=== PATIENT | female | born 1960 | race Caucasian/White ===

== ENCOUNTER 2019-07-20 13:17 | Outpatient (CLI) | payer OTHER, SELFPAY ==
--- NOTE | 2019-07-20 | CT_ITS ---
WS: [id number] CT HEAD NONCONTRAST HISTORY: CONCUSSION W/ LOC TECHNIQUE: Contiguous axial imaging performed through the brain in 2.5 mm imaging. Bone and soft tiss ue windows. All CT scans at [facility] use at least one of these dose optimization techniq ues: automated exposure control; mA and/or kV adjustment per patient size (includes targeted exams wh ere dose is matched to clinical indication); or iterative reconstruction. DLP: 992.04 mGycm COMPARISON: 06/03/2007 No acute intracranial hemorrhage, midline shift or mass effect. No atrophy or prior infarcts or herniation. Ventricles: Normal size with no hydrocephalus. Paranasal sinuses: As visualized are clear. Mastoid air cells: Well pneumatized. Calvarium and scalp: Skull is intact with no soft tissue edema or swelling. CT/CT head wo con* [id number] IMPRESSION: Negative head CT.
== END 2019-07-20 13:18 | disposition home or self-care (01) ==
LOC: RADWPI 13:23
PROVIDERS: Family Provider Family Medicine; PCP Family Medicine; Visit Provider Family Medicine
DX: R51 Headache (principal); S06.0X9A Concussion with loss of consciousness of unspecified duration, initial encounter; X58.XXXA Exposure to other specified factors, initial encounter
CPT/HCPCS: 70450

== ENCOUNTER 2021-04-23 17:22 | Emergency (ER) | payer OTHER, SELFPAY ==
[2021-04-23 17:29] VITALS: BP 133/51; PULSE 90; RESP 18; TEMP 36.5; O2SAT 97; BMI 32.3
--- NOTE | 2021-04-23 17:36 | CTR_ITS ---
PROCEDURE INFORMATION: Exam: CT Abdomen And Pelvis Without Contrast Exam date and time: 04/23/2021 5:36 PM Age: 60 years old Clinical indication: Abdominal pain; Right; Prior surgery; Surgery date: 6+ months; Surgery type: Hyst; Patient HX: C/O sudden onset R flank pain; Additional info: Right flank pain TECHNIQUE: Imaging protocol: Computed tomography of the abdomen and pelvis without contrast. Radiation optimization: All CT scans at this facility use at least one of these dose optimization techniques: automated exposure control; mA and/or kV adjustment per patient size (includes targeted exams where dose is matched to clinical indication); or iterative reconstruction. COMPARISON: No relevant prior studies available. RADIATION DOSE METRICS: Total DLP (mGy-cm): 1670.93 FINDINGS: Liver: Normal. No mass. Gallbladder and bile ducts: Cholelithiasis. Pancreas: Normal. No ductal dilation. Spleen: Normal. No splenomegaly. Adrenal glands: Normal. No mass. Kidneys and ureters: Normal. No hydronephrosis. Stomach and bowel: Unremarkable. No obstruction. No mucosal thickening. Appendix: No evidence of appendicitis. Intraperitoneal space: Unremarkable. No free air. No significant fluid collection. Vasculature: Unremarkable. No abdominal aortic aneurysm. Lymph nodes: Unremarkable. No enlarged lymph nodes. Urinary bladder: Unremarkable as visualized. Reproductive: Unremarkable as visualized. Bones/joints: Unremarkable. No acute fracture. Soft tissues: Unremarkable. CT/CT kidney stone [id number] IMPRESSION: 1. Negative for acute inflammatory process in the abdomen or pelvis. 2. Cholelithiasis.
--- NOTE | 2021-04-23 17:36 | W.ED.ABDPA2 ---
Documented by User: Clement London MD 04/23/21 17:38 HPI - Abdominal Pain General: Chief Complaint: Abdominal Pain Stated Complaint: R abd pain Time Seen by Provider: 04/23/21 17:32 Source: patient Mode of arrival: ambulatory Limitations: no limitations History of Present Illness: 60-year-old female states that she been having some intermittent right flank abdominal pain over the last week states she had woke up from a nap just an hour or 2 ago with severe sudden sharp pain. States the pain is in her right flank and right side of the abdomen states is actually feels improved if she pushes on her flank. She has had nausea no vomiting she states the pain is a 9 out of 10. Denies any dysuria. No history of kidney stones or abdominal pain like this in the past. Associated Symptoms: Reports nausea; Denies chills and fever(s) Review of Systems Const: Denies: fever(s), chills, body aches or change in appetite Eyes: Denies: blurry vision or eye discomfort ENMT: Denies: throat pain or dental pain Card: Denies: chest pain Resp: Denies: dyspnea GI: Reports: abdominal pain and nausea : Reports: flank pain Musc: Denies: neck pain or back pain Skin/Breast: Denies: rash Neuro: Denies: headache(s) Psych: Denies: depression Jesus/Lymph: Denies: easy bruising All/Imm: Denies: urticaria PFSH ED PFSH: Social History Smoking and tobacco status: never smoked Physical Exam Const: COMMON NORMALS: no acute distress, patient oriented x3 and healthy appearing HENMT: COMMON NORMALS: normocephalic and atraumatic HEAD & SCALP: normocephalic and atraumatic Eye: COMMON NORMALS: Equal, round and reactive pupils present and EOMs intact bilaterally PUPIL: Yes Equal, round and reactive pupils present Neck/C-Spine: COMMON NORMALS: full ROM and supple Chest: COMMONS NORMALS: normal inspection of the chest and normal palpation of entire chest wall Resp: COMMON NORMALS: normal respiratory effort, No retractions, No use of accessory muscles and clear to auscultation bilaterally AUSCULTATION: clear to auscultation bilaterally Cardio: COMMON NORMALS: regular rate, regular rhythm and No murmurs present (Cardio) RATE: regular rate RHYTHM: regular rhythm GI: COMMON NORMALS: Normal to inspection, nondistended, normoactive bowel sounds present, Soft to palpation, non-tender and no masses PALPATION: Yes Soft to palpation Extremity: COMMON NORMALS: normal to inspection and full ROM Neuro: COMMON NORMALS: patient oriented x3, moves all extremities and no focal motor deficits Psych: COMMON NORMALS: mental status grossly normal, Normal thought process present and cooperative THOUGHT PROCESS: Normal thought process present Skin: COMMON NORMALS: no rashes or lesions noted and no wounds GENERAL SKIN EXAM: no rashes or lesions noted Course Vital Signs: Vital signs: Vital Signs Temperature 97.7 F 04/23/21 17:29 Pulse Rate 70 04/23/21 20:08 Respiratory Rate 17 04/23/21 20:08 Blood Pressure 135/79 04/23/21 20:08 Pulse Oximetry 96 04/23/21 20:08 MDM - Abdominal Pain Lab Data : 04/23/21 19:02 04/23/21 19:02 Labs/Radiology: Radiology Impressions Abdomen/Pelvis CT 04/23/21 17:36 IMPRESSION: 1. Negative for acute inflammatory process in the abdomen or pelvis. 2. Cholelithiasis. Laboratory Results WBC 9.1 10^3/uL (4.0-10.0) 04/23/21 19:02 Corrected WBC Cancelled 04/23/21 18:20 RBC 4.63 10^6/uL (4.1-5.3) 04/23/21 19:02 Hgb 13.4 g/dL (11.5-15.3) 04/23/21 19:02 Hct 41.8 % (37.0-47.0) 04/23/21 19:02 MCV 90.3 fl (81-99) 04/23/21 19:02 MCH 28.9 pg (28.0-34.0) 04/23/21 19:02 MCHC 32.1 g/dL (30.0-36.0) 04/23/21 19:02 RDW 12.8 % (12.1-15.1) 04/23/21 19:02 Plt Count 322 10^3/cmm (130-400) 04/23/21 19:02 MPV 9.7 fL (7.4-10.4) 04/23/21 19:02 Gran % Cancelled 04/23/21 18:20 Neut % (Auto) 70.4 % 04/23/21 19:02 Lymph % (Auto) 19.9 % 04/23/21 19:02 [place] % (Auto) 7.1 % 04/23/21 19:02 Eos % (Auto) 1.4 % 04/23/21 19:02 Baso % (Auto) 0.9 % 04/23/21 19:02 Neut # (Auto) 6.40 10^3/uL (1.8-7.7) 04/23/21 19:02 Lymph # (Auto) 1.8 10^3/uL (0.8-4.8) 04/23/21 19:02 [place] # (Auto) 0.7 10^3/uL (0.2-0.9) 04/23/21 19:02 Eos # (Auto) 0.1 10^3/uL (0.0-0.8) 04/23/21 19:02 Baso # (Auto) 0.1 10^3/uL (0.0-0.1) 04/23/21 19:02 Absolute Gran (auto) Cancelled 04/23/21 18:20 Nucleated RBC % (auto) 0 % 04/23/21 19:02 Nucleated RBCs # 0.0 /100WBC 04/23/21 19:02 Sodium 137 mmol/L (136-145) 04/23/21 19:02 Potassium 4.0 mmol/L (3.5-5.1) 04/23/21 19:02 Chloride 103 mmol/L (98-107) 04/23/21 19:02 Carbon Dioxide 24 mmol/L (22-29) 04/23/21 19:02 Anion Gap 14.0 (5-19) 04/23/21 19:02 BUN 10 mg/dL (6-20) 04/23/21 19:02 Creatinine 0.5 mg/dL (0.5-0.9) 04/23/21 19:02 GFR Calculation 126.7 mL/min (90-130) 04/23/21 19:02 Glucose 120 mg/dL (65-115) H 04/23/21 19:02 Calculated Osmolality 284 mOsm/kg (285-295) L 04/23/21 19:02 Calcium 9.4 mg/dL (8.5-10.5) 04/23/21 19:02 Total Bilirubin 0.2 mg/dL (0.15-1.2) 04/23/21 19:02 AST 16 U/L (0-32) 04/23/21 19:02 ALT 25 U/L (0-33) 04/23/21 19:02 Alkaline Phosphatase 87 IU/L (35-105) 04/23/21 19:02 Total Protein 7.3 g/dL (6.6-8.7) 04/23/21 19: Albumin 4.2 g/dL (3.5-5.2) 04/23/21 19: Globulin 3.1 g/dL (1.3-4.6) 04/23/21 19: Lipase 54 U/L (13-60) 04/23/21 19:02 HCG, Qual Negative (Negative) 04/23/21 19: Urine Color Yellow (Yellow) 04/23/21 18:01 Urine Appearance Clear (CLEAR) 04/23/21 18:01 Urine pH 7 (5-7) 04/23/21 18:01 Ur Specific [place] 1.015 (1.005-1.030) 04/23/21 18:01 Urine Protein Neg (Negative) 04/23/21 18:01 Urine Glucose (UA) Norm (Normal) 04/23/21 18:01 Urine Ketones Negative (Negative) 04/23/21 18:01 Urine Blood 2+ (Negative) H 04/23/21 18: Urine Nitrate Negative (Negative) 04/23/21 18:01 Urine Bilirubin Neg (Negative) 04/23/21 18:01 Urine Urobilinogen Norm mg/dL (Negative) 04/23/21 18:01 Ur Leukocyte Esterase 2+ (Negative) H 04/23/21 18:01 Urine RBC 5-10 /hpf (0-2) H 04/23/21 18:01 Urine WBC 10-15 /hpf (0-5) H 04/23/21 18:01 Ur Squamous Epith Cells 15-25 /hpf (0-5) H 04/23/21 18:01 Amorphous Sediment Trace /hpf 04/23/21 18:01 Urine Bacteria 2+ /hpf (NONE) H 04/23/21 18:01 Hyaline Casts 0-4 /lpf H 04/23/21 18:01 Discharge Plan Discharge Patient Disposition: Home Clinical Impression: Pyelonephritis Condition: Stable Prescriptions: New cefdinir 300 mg capsule 300 mg PO BID Qty: 14 0RF hydrocodone-acetaminophen 5-325 mg tablet 1 tab PO Q8H PRN (Reason: pain) Qty: 7 0RF ondansetron HCl [Zofran] 4 mg tablet 4 mg PO Q6H PRN (Reason: nausea and vomiting) Qty: 10 0RF No Action anastrozole 1 mg tablet 1 mg PO DAILY 0RF venlafaxine [Effexor XR] 75 mg capsule,extended release 24hr 75 mg PO DAILY 0RF clindamycin HCl 300 mg capsule 300 mg PO TID 7 Days Qty: 21 0RF gentamicin 0.3 % drops 1 drp ophthalmic (eye) TID 5 Days Qty: 5 0RF Discharge Orders: Discharge ED (Routine); Ordered 04/23/21 Ordered By: Blaise Leger Referrals: Ashwini Mojica MD [Primary Care Provider] - 1-3 days Patient Instructions: Kidney Infection (ED), Opioid Safety Activity Restrictions/Additional Instructions: Return for fever greater than 100 despite 2-3 doses of antibiotics, vomiting liquids or medications despite treatment, worsening pain despite treatment, other concerning symptoms. Follow-up with your doctor Coding Level of Care Code ED Palliative Care Nurse for Chg Fwd Exam Comprehensive Documented by User: Blaise Leger DO 04/23/21 20:13 HPI - Abdominal Pain General: Chief Complaint: Abdominal Pain Stated Complaint: R abd pain Time Seen by Provider: 04/23/21 17:32 PFSH ED PFSH: Social History Smoking and tobacco status: never smoked Course Vital Signs: Vital signs: Vital Signs Temperature 97.7 F 04/23/21 17:29 Pulse Rate 70 04/23/21 20:08 Respiratory Rate 17 04/23/21 20:08 Blood Pressure 135/79 04/23/21 20:08 Pulse Oximetry 96 04/23/21 20:08 MDM - Abdominal Pain Medical Decision Making 60-year-old female checked out to me by Dr. London at shift change. This lady had right flank-elver pain. It is improved now after pain medication and Zofran. Her CBC is normal. Her BMP is essentially normal. Urine is slightly contaminated but likely shows a urinary tract infection. CT of the abdomen pelvis shows some cholelithiasis. It is otherwise negative. Discussed findings with the patient related to cholelithiasis without cholecystitis, versus more likely urinary tract infection. She has gotten Rocephin here. She will go home on antibiotics. She will follow up with her doctor concerning the possibility of biliary colic should her pain come and go with meals in the future. Lab Data : 04/23/21 19:02 04/23/21 19:02 Labs/Radiology: Radiology Impressions Abdomen/Pelvis CT 04/23/21 17:36 IMPRESSION: 1. Negative for acute inflammatory process in the abdomen or pelvis. 2. Cholelithiasis. Laboratory Results WBC 9.1 10^3/uL (4.0-10.0) 04/23/21 19:02 Corrected WBC Cancelled 04/23/21 18:20 RBC 4.63 10^6/uL (4.1-5.3) 04/23/21 19:02 Hgb 13.4 g/dL (11.5-15.3) 04/23/21 19:02 Hct 41.8 % (37.0-47.0) 04/23/21 19:02 MCV 90.3 fl (81-99) 04/23/21 19:02 MCH 28.9 pg (28.0-34.0) 04/23/21 19:02 MCHC 32.1 g/dL (30.0-36.0) 04/23/21 19:02 RDW 12.8 % (12.1-15.1) 04/23/21 19:02 Plt Count 322 10^3/cmm (130-400) 04/23/21 19:02 MPV 9.7 fL (7.4-10.4) 04/23/21 19:02 Gran % Cancelled 04/23/21 18:20 Neut % (Auto) 70.4 % 04/23/21 19:02 Lymph % (Auto) 19.9 % 04/23/21 19:02 [place] % (Auto) 7.1 % 04/23/21 19:02 Eos % (Auto) 1.4 % 04/23/21 19:02 Baso % (Auto) 0.9 % 04/23/21 19:02 Neut # (Auto) 6.40 10^3/uL (1.8-7.7) 04/23/21 19:02 Lymph # (Auto) 1.8 10^3/uL (0.8-4.8) 04/23/21 19:02 [place] # (Auto) 0.7 10^3/uL (0.2-0.9) 04/23/21 19:02 Eos # (Auto) 0.1 10^3/uL (0.0-0.8) 04/23/21 19:02 Baso # (Auto) 0.1 10^3/uL (0.0-0.1) 04/23/21 19:02 Absolute Gran (auto) Cancelled 04/23/21 18:20 Nucleated RBC % (auto) 0 % 04/23/21 19:02 Nucleated RBCs # 0.0 /100WBC 04/23/21 19:02 Sodium 137 mmol/L (136-145) 04/23/21 19:02 Potassium 4.0 mmol/L (3.5-5.1) 04/23/21 19:02 Chloride 103 mmol/L (98-107) 04/23/21 19:02 Carbon Dioxide 24 mmol/L (22-29) 04/23/21 19:02 Anion Gap 14.0 (5-19) 04/23/21 19:02 BUN 10 mg/dL (6-20) 04/23/21 19:02 Creatinine 0.5 mg/dL (0.5-0.9) 04/23/21 19:02 GFR Calculation 126.7 mL/min (90-130) 04/23/21 19:02 Glucose 120 mg/dL (65-115) H 04/23/21 19:02 Calculated Osmolality 284 mOsm/kg (285-295) L 04/23/21 19:02 Calcium 9.4 mg/dL (8.5-10.5) 04/23/21 19:02 Total Bilirubin 0.2 mg/dL (0.15-1.2) 04/23/21 19:02 AST 16 U/L (0-32) 04/23/21 19:02 ALT 25 U/L (0-33) 04/23/21 19:02 Alkaline Phosphatase 87 IU/L (35-105) 04/23/21 19:02 Total Protein 7.3 g/dL (6.6-8.7) 04/23/21 19:02 Albumin 4.2 g/dL (3.5-5.2) 04/23/21 19: Globulin 3.1 g/dL (1.3-4.6) 04/23/21 19:02 Lipase 54 U/L (13-60) 04/23/21 19:02 HCG, Qual Negative (Negative) 04/23/21 19:02 Urine Color Yellow (Yellow) 04/23/21 18:01 Urine Appearance Clear (CLEAR) 04/23/21 18:01 Urine pH 7 (5-7) 04/23/21 18:01 Ur Specific [place] 1.015 (1.005-1.030) 04/23/21 18:01 Urine Protein Neg (Negative) 04/23/21 18:01 Urine Glucose (UA) Norm (Normal) 04/23/21 18:01 Urine Ketones Negative (Negative) 04/23/21 18:01 Urine Blood 2+ (Negative) H 04/23/21 18:01 Urine Nitrate Negative (Negative) 04/23/21 18: Urine Bilirubin Neg (Negative) 04/23/21 18:01 Urine Urobilinogen Norm mg/dL (Negative) 04/23/21 18:01 Ur Leukocyte Esterase 2+ (Negative) H 04/23/21 18:01 Urine RBC 5-10 /hpf (0-2) H 04/23/21 18:01 Urine WBC 10-15 /hpf (0-5) H 04/23/21 18:01 Ur Squamous Epith Cells 15-25 /hpf (0-5) H 04/23/21 18:01 Amorphous Sediment Trace /hpf 04/23/21 18:01 Urine Bacteria 2+ /hpf (NONE) H 04/23/21 18:01 Hyaline Casts 0-4 /lpf H 04/23/21 18:01 Discharge Plan Discharge Patient Disposition: Home Clinical Impression: Pyelonephritis Condition: Stable Prescriptions: New cefdinir 300 mg capsule 300 mg PO BID Qty: 14 0RF hydrocodone-acetaminophen 5-325 mg tablet 1 tab PO Q8H PRN (Reason: pain) Qty: 7 0RF ondansetron HCl [Zofran] 4 mg tablet 4 mg PO Q6H PRN (Reason: nausea and vomiting) Qty: 10 0RF No Action anastrozole 1 mg tablet 1 mg PO DAILY 0RF venlafaxine [Effexor XR] 75 mg capsule,extended release 24hr 75 mg PO DAILY 0RF clindamycin HCl 300 mg capsule 300 mg PO TID 7 Days Qty: 21 0RF gentamicin 0.3 % drops 1 drp ophthalmic (eye) TID 5 Days Qty: 5 0RF Discharge Orders: Discharge ED (Routine); Ordered 04/23/21 Ordered By: Blaise Leger Referrals: Ashwini Mojica MD [Primary Care Provider] - 1-3 days Patient Instructions: Kidney Infection (ED), Opioid Safety Activity Restrictions/Additional Instructions: Return for fever greater than 100 despite 2-3 doses of antibiotics, vomiting liquids or medications despite treatment, worsening pain despite treatment, other concerning symptoms. Follow-up with your doctor Coding Level of Care Code ED Palliative Care Nurse for Chg Fwd Exam Comprehensive
[2021-04-23 18:22] VITALS: BP 150/93; PULSE 81; RESP 16; O2SAT 92
[2021-04-23] MEDS: HYDROmorphone 1 mg/mL INJ 1 mL IVP (18:22)
[2021-04-23] MEDS: ondansetron 2 mg/ML SDV 2 mL 4 MG IVP (18:22)
[2021-04-23 18:43] LABS: Add Urine Microscopic? YES; Bacteria Urine 2+ /hpf; Bilirubin Urine Neg (Negative); Blood Urine 2+ (Negative); Glucose Urine UA Norm (Normal); Hyaline Casts Urine 0-4 /lpf; Ketones Urine Negative (Negative); Leukocyte Esterase Urine 2+ (Negative); Nitrate Urine Negative (Negative); Protein Urine Neg (Negative); Specific Gravity, Urine 1.015 (1.005-1.030); Squamous Epithelial Cell Urine 15-25 /hpf (0-5); Urine Appearance Clear (CLEAR); Urine Color Yellow (Yellow); Urobilinogen Urine Norm (Negative); pH Urine 7 (5-7)
[2021-04-23 18:44] LABS: Add Urine Culture? No; Amorphous Sediment Urine TRACE /hpf
[2021-04-23 19:07] LABS: Basophils # 0.1 10^3/uL (0.0-0.1); Basophils % 0.9 %; Eosinophils # 0.1 10^3/uL (0.0-0.8); Eosinophils % 1.4 %; Hematocrit 41.8 % (37.0-47.0); Hemoglobin 13.4 g/dL (11.5-15.3); Lymphocytes # 1.8 10^3/uL (0.8-4.8); Lymphocytes % 19.9 %; Mean Corpuscular HGB Conc 32.1 g/dL (30.0-36.0); Mean Corpuscular Hemoglobin 28.9 pg (28.0-34.0); Mean Corpuscular Volume 90.3 fl (81-99); Mean Platelet Volume 9.7 fL (7.4-10.4); Monocytes # 0.7 10^3/uL (0.2-0.9); Monocytes % 7.1 %; Neutrophils % 70.4 %; Nucleated Red Blood Cells % 0 %; Platelet Count 322 10^3/cmm (130-400); Red Blood Count 4.63 10^6/uL (4.1-5.3); Red Cell Distribution Width 12.8 % (12.1-15.1); White Blood Count 9.1 10^3/uL (4.0-10.0)
[2021-04-23 19:24] LABS: Alanine Aminotransferase 25 U/L (0-33); Albumin Level 4.2 g/dL (3.5-5.2); Alkaline Phosphatase 87 IU/L (35-105); Aspartate Amino Transferase 16 U/L (0-32); Blood Urea Nitrogen 10 mg/dL (6-20); Calcium 9.4 mg/dL (8.5-10.5); Carbon Dioxide 24 mmol/L (22-29); Chloride 103 mmol/L (98-107); Globulin 3.1 g/dL (1.3-4.6); Glomerular Filtration Rate 126.7 mL/min (90-130); Glucose 120 mg/dL (65-115); Lipase 54 U/L (13-60); Osmolality Calculated 284 mOsm/kg (285-295); Sodium 137 mmol/L (136-145); Total Bilirubin 0.2 mg/dL (0.15-1.2); Total Protein 7.3 g/dL (6.6-8.7)
[2021-04-23 19:25] LABS: HCG, Serum Qual Negative (Negative)
[2021-04-23] MEDS: cefTRIAXone 1,000 MG in sodium chloride 0.9% (plus) 50 ML 100 MG IV (20:06)
[2021-04-23 20:08] VITALS: BP 135/79; PULSE 70; RESP 17; O2SAT 96
[2021-04-23 20:54] VITALS: BP 135/70; PULSE 72; RESP 16; O2SAT 95
== END 2021-04-23 20:55 | disposition home or self-care (01) ==
PROVIDERS: Emergency Medicine; Emergency Provider Emergency Medicine; PCP Family Medicine
DX: N12 Tubulo-interstitial nephritis, not specified as acute or chronic (principal)
CPT/HCPCS: 74176; 80053; 81001; 83690; 84703; 85025; 96365; 96375; 99284; J0696; J1170; J2405

== ENCOUNTER 2021-09-14 06:29 | Day surgery (SDC) | payer OTHER, SELFPAY ==
[2021-09-12 11:36] VITALS: BMI 32.3
--- NOTE | 2021-09-13 06:07 | P.ANESASSM_ITS ---
Pre-Anesthetic Assessment Height/Weight: Height 1.68 m Weight 90.718 kg Operation Date: 09/14/21 08:00 Proposed Procedures p Colonoscopy 78243,z12.11(Not Applicable) - Dylan Wang DO Medications/Allergies Home Medications Medication Instructions Recorded Confirmed Last Taken Type anastrozole 1 mg tablet 1 mg PO DAILY 04/17/20 09/12/21 Unknown History PROBIOTIC 1 tab PO DAILY 07/27/21 09/12/21 Unknown History multivitamin 1 tab PO ONCE 07/27/21 09/12/21 Unknown History pantoprazole 40 mg tablet,delayed 40 mg PO DAILY 09/12/21 09/12/21 Unknown History release venlafaxine 150 mg 150 mg PO DAILY 09/12/21 09/12/21 Unknown History capsule,extended release 24 hr Allergies Allergy/AdvReac Type Severity Reaction Status Date / Time Penicillins Allergy Unconscious Verified 07/27/21 09:33 sulfamethoxazole Allergy ALGY-Rash Verified 07/27/21 09:33 [From Bactrim] trimethoprim [From Bactrim] Allergy ALGY-Rash Verified 07/27/21 09:33 [facility] Anesthesia Social History Smoking and tobacco status: never smoked Data Anesthesia Cardiac Studies: Holter Monitor 07/29/19
[2021-09-14 06:46] VITALS: BP 173/125; PULSE 94; RESP 18; TEMP 36.3; O2SAT 96
[2021-09-14] MEDS: sodium chloride 0.9% 1,000 ML 30 ML IV (06:54)
--- NOTE | 2021-09-14 07:31 | P.HP_ITS ---
Providers/Chief Complaint Primary Care Provider: Ashwini Mojica MD Chief Complaint: Colon cancer screening History of Present Illness Brittney Cool is a 61 year old female who presents for her first screening colonoscopy. Her only complaint is that she has a large hemorrhoid that she has had since giving to her son, but it does not bleed or bother her. Review of Systems General: Reports: 10 or more systems reviewed and unremarkable except in HPI and below Medications/Allergies Home Medications Medication Instructions Recorded Confirmed Last Taken Type anastrozole 1 mg tablet 1 mg PO DAILY 04/17/20 09/14/21 09/14/21 History 1 mg PROBIOTIC 1 tab PO DAILY 07/27/21 09/14/21 09/13/21 History multivitamin 1 tab PO ONCE 07/27/21 09/14/21 09/13/21 History pantoprazole 40 mg tablet,delayed 40 mg PO DAILY 09/12/21 09/14/21 09/13/21 History release venlafaxine 150 mg 150 mg PO DAILY 09/12/21 09/14/21 09/13/21 History capsule,extended release 24 hr Allergies Allergy/AdvReac Type Severity Reaction Status Date / Time Penicillins Allergy Unconscious Verified 09/14/21 06:45 sulfamethoxazole Allergy ALGY-Rash Verified 09/14/21 06:45 [From Bactrim] trimethoprim [From Bactrim] Allergy ALGY-Rash Verified 09/14/21 06:45 PFSH Acute PFSH: Social History Smoking and tobacco status: never smoked Vitals/I&O/Wt Last Vital Signs Temp 97.3 F L 09/14/21 06:46 Pulse 94 09/14/21 06:46 Resp 18 09/14/21 06:46 BP 173/125 09/14/21 06:46 Pulse Ox 96 09/14/21 06:46 O2 Del Method 09/14/21 06:46 Weight last 48 hrs Weight 200 lb Physical Exam Narrative: General : Patient is well developed , no acute distress, oriented x3 Head : Normal cephalic, a-traumatic. Ears : Pinnae and external canal are normal. Hearing is normal. Eyes : PERRLA, Sclera and injection are normal. No conjunctival discharge. Nose : Mucous membranes are without erythema. Throat : buccal mucosa is normal, gums are without significant recession or hypertrophy. Lungs : Equal chest rise bilaterally, no use of accessory muscles, trachea is midline. Cor : Rate and rhythm are normal. Abdomen : Soft, ND, NT, no g/r/m Extremities : No edema, no cyanosis or clubbing, dorsalis pedis pulses are present bilaterally, non-tender to palpation of calves. Upper extremities are normal bilaterally. Back : non-tender to palpation, no CVA tenderness. Neuro : CN II - XII intact, Upper and lower extremities have equal and full strength A&P Assessment and plan (1) Colon cancer screening: Status: Acute Plan Colonoscopy The risks and benefits of the procedure, including bleeding, infection, intestinal perforation requiring surgery, missed lesion, or explained to the patient. He is understanding of the risks and wishes to proceed. Attestations Medical Necessity Statement*: Patient will be discharged home after the procedure Coding Level of Care Code Acute [employer] Supervisor for [facility] Diagnoses Colon cancer screening Z12.11
--- NOTE | 2021-09-14 08:05 | ANES.PREANE2 ---
Pre-Anesthetic Assessment Height/Weight: Height 1.68 m Weight 90.718 kg Temp Pulse Resp BP Pulse Ox O2 Del Method 97.3 F L 94 18 173/125 96 09/14/21 06:46 09/14/21 06:46 09/14/21 06:46 09/14/21 06:46 09/14/21 06:46 09/14/21 06:46 Preop Diagnosis: screening Operation Date: 09/14/21 08:00 Proposed Procedures p Colonoscopy 58701,z12.11(Not Applicable) - Dylan Wang DO Familial anesthetic complications: none Last intake: Intake Last Liquid Date 09/13/21 Last Liquid Time 23:15 Last Solid Date 09/13/21 Last Solid Time 06:30 Social No alcohol Airway Submandibular: within normal limits Cervical ROM: within normal limits Mallampati: Class I Dentition: full Pulmonary Asthma CV/HEM None reported None reported Hepatic None reported GI Gastroesophageal Reflux Disease Metabolic None reported Musc/skel None reported Neuropsych Anxiety Anesthetic Plan ASA status: 2 Anesthesia: MAC Medications/Allergies Home Medications Medication Instructions Recorded Confirmed Last Taken Type anastrozole 1 mg tablet 1 mg PO DAILY 04/17/20 09/14/21 09/14/21 History 1 mg PROBIOTIC 1 tab PO DAILY 07/27/21 09/14/21 09/13/21 History multivitamin 1 tab PO ONCE 07/27/21 09/14/21 09/13/21 History pantoprazole 40 mg tablet,delayed 40 mg PO DAILY 09/12/21 09/14/21 09/13/21 History release venlafaxine 150 mg 150 mg PO DAILY 09/12/21 09/14/21 09/13/21 History capsule,extended release 24 hr Allergies Allergy/AdvReac Type Severity Reaction Status Date / Time Penicillins Allergy Unconscious Verified 09/14/21 06:45 sulfamethoxazole Allergy ALGY-Rash Verified 09/14/21 06:45 [From Bactrim] trimethoprim [From Bactrim] Allergy ALGY-Rash Verified 09/14/21 06:45 Current Medications Generic Name Dose Route Start Last Admin Trade Name Freq PRN Reason Stop Dose Admin Sodium Chloride 1,000 mls @ 30 mls/hr 09/14/21 06:45 09/14/21 06:54 Sodium Chloride 0.9% IV 09/15/21 06:44 30 mls/hr .Q24H REJI Administration PFSH Anesthesia Social History Smoking and tobacco status: never smoked Data Anesthesia Cardiac Studies: Holter Monitor 07/29/19
[2021-09-14 08:25] VITALS: BP 142/82; PULSE 72; RESP 18; TEMP 36.3; O2SAT 100
[2021-09-14 08:37] VITALS: BP 126/82; PULSE 75; RESP 18; TEMP 36.2; O2SAT 95
--- NOTE | 2021-09-14 12:46 | ANE.PACU2 ---
Inpatient post-anesthesia follow up: Airway intact: Yes Vital signs: Temperature 97.2 F Pulse Rate 75 Respiratory Rate 18 Blood Pressure 126/82 Pulse Oximetry 95 Oxygen Delivery Me thod Room Air Oxygen Flow Rate Fraction of Inspir ed Oxygen Hydration adequate: Yes Nausea and vomiting: No Pain level: 1 Mental status: Baseline
== END 2021-09-14 08:51 | disposition home or self-care (01) ==
PROVIDERS: PCP Family Medicine; Visit Provider Surgery
PROC: 0DJD8ZZ Inspection of Lower Intestinal Tract, Via Natural or Artificial Opening Endoscopic (ICD-10-PCS; CPT 45378; principal; 2021-09-14 08:00)
DX: Z12.11 Encounter for screening for malignant neoplasm of colon (principal); K21.9 Gastro-esophageal reflux disease without esophagitis
CPT/HCPCS: 45378; J2704; J7030

== ENCOUNTER → 2024-10-16 10:28 | Outpatient (BNVA) | payer OTHER, SELFPAY | PROVIDERS: PCP Family Medicine; Visit Provider Family Medicine | DX: R53.83 Other fatigue (principal) | CPT/HCPCS: 80053; 82607; 84439; 84443; 85025 ==

== ENCOUNTER 2024-11-16 08:51 | Outpatient (CLI) | payer OTHER, SELFPAY ==
--- NOTE | 2024-11-16 09:03 | MM_ITS ---
WS: [id number] DIAGNOSTIC BILATERAL DIGITAL BREAST TOMOSYNTHESIS MAMMOGRAPHY WITH CAD HISTORY: HX OF BREAST CANCER, status post lumpectomy 2019. COMPARISON: 07/11/2022, 02/17/2022, 03/06/2021 TECHNIQUE: Bilateral craniocaudad, mediolateral oblique, and mediolateral views are submitted with tomosynthesis and SM. Computer aided detection utilized. Breast composition: There are scattered areas of fibroglandular density. Status post lumpectomy changes in the posterior lateral LEFT breast. Improving postoperative cavity is collapsing around the postoperative suture material. There is no recurrent mass or spiculation. Benign calcifications in the anterior LEFT breast are stable. No suspicious masses or distortion in the RIGHT breast. MM/MM diag BI tomosynthesis [id number] IMPRESSION: BI-RADS: 2 - Benign FOLLOW UP: 1 Year Follow-up Improving postoperative changes upper outer quadrant LEFT breast.
== END 2024-11-16 08:52 | disposition home or self-care (01) ==
LOC: RAD 08:53
PROVIDERS: PCP Family Medicine; Visit Provider Family Medicine
DX: Z85.3 Personal history of malignant neoplasm of breast (principal)
CPT/HCPCS: 77062; G0279

== ENCOUNTER → 2024-11-20 08:33 | Outpatient (BNVA) | payer OTHER, SELFPAY | PROVIDERS: PCP Family Medicine; Visit Provider Family Medicine | DX: Z13.6 Encounter for screening for cardiovascular disorders (principal); R73.01 Impaired fasting glucose | CPT/HCPCS: 80061; 83036 ==

== ENCOUNTER 2024-12-04 09:13 | Outpatient (CLI) | payer OTHER, SELFPAY ==
--- NOTE | 2024-12-04 09:20 | XR_ITS ---
WS: [id number] XR knee RT 3V* [id number] REASON FOR EXAM: R knee pain FINDINGS: No fracture or focal bone lesion. Mild narrowing of the medial knee joint space with mild subchondral sclerosis and osteophytosis. Lateral knee joint space is intact and well preserved with minimal subchondral sclerosis. Patellofemoral joint space is intact with moderate subchondral sclerosis and mild osteophytosis. XR/XR knee RT 3V* [id number] IMPRESSION: Minimal to mild osteoarthritis of the right knee.
--- NOTE | 2024-12-04 09:20 | XR_ITS ---
WS: [id number] XR chest 2V* [id number] REASON FOR EXAM: chronic cough FINDINGS: Moderate tortuosity and ectasia of the ascending and descending thoracic aorta. Normal heart size. Calcified granulomas disease bilaterally. No acute pulmonary parenchymal or pleural abnormality. Moderate degenerative spondylosis in the mid and lower thoracic spine. XR/XR chest 2V* [id number] IMPRESSION: No significant chest abnormality.
== END 2024-12-04 09:14 | disposition home or self-care (01) ==
PROVIDERS: PCP Family Medicine; Visit Provider Family Medicine
DX: M17.11 Unilateral primary osteoarthritis, right knee (principal); J32.0 Chronic maxillary sinusitis; J30.89 Other allergic rhinitis; R05.3 Chronic cough; R91.8 Other nonspecific abnormal finding of lung field; M47.894 Other spondylosis, thoracic region
CPT/HCPCS: 71046; 73562

== ENCOUNTER → 2024-12-14 14:05 | Outpatient (BNVA) | payer OTHER, SELFPAY | PROVIDERS: PCP Family Medicine; Visit Provider Emergency Medicine | DX: J06.9 Acute upper respiratory infection, unspecified (principal) | CPT/HCPCS: 87071; 87400; 87426; 87880 ==